=== PATIENT | male | born 1960 | race Caucasian/White ===

== ENCOUNTER 2019-08-17 09:22 | Inpatient (IN) ==
[2019-08-17] MEDS ORDERED: NS 1,000 ML IV ONE (09:47)
[2019-08-17] MEDS ORDERED: CLINDAMYCIN 900 MG/NS 900 MG/50 ML IVPB IV ONE (09:50)
[2019-08-17] MEDS ORDERED: VANCOMYCIN 1 GM/NS 1 GM/250 ML IVPB IV ONE (09:50)
[2019-08-17 09:57] LABS: BASO# 0.01 X1000 (0.0-0.2); BASO% 0.1 % (0.0-0.8); EOS# 0.04 X1000 (0.0-0.7); EOS% 0.4 % (0.0-10.0); HEMATOCRIT 43.1 % (42.0-52.0); HEMOGLOBIN 15.1 g/dL (14.0-18.0); IMM GRAN# 0.04 X1000 (0.0-0.04); IMM GRAN% 0.4 % (0.0-0.5); LYMPH# 1.46 X1000 (1.2-3.4); LYMPH% 15.1 % (20.5-51.1); MCH 36.5 PG (27-31); MCV 104.1 FL (81-99); MONO# 1.34 X1000 (0.11-0.59); MONO% 13.9 % (1.7-9.3); MPV 9.4 FL (7.4-10.4); NEUT# 6.75 X1000 (1.4-6.5); NEUT% 70.1 % (42.2-75.2); PLT 193 X1000 (130-400); RBC 4.14 XMIL (4.7-6.1); RDW 14.2 % (11.5-14.5); WBC 9.64 X1000 (4.8-10.8)
[2019-08-17] MEDS ORDERED: CLINDAMYCIN 900 MG/D5W 900 MG/50 ML IVPB IV ONE (10:00)
--- NOTE | 2019-08-17 10:10 | Diag Imaging Result Doc PS360 ---
EXAM: CHEST-2 VIEWS 08/17/2019 HISTORY: lung cancer, short of breath TECHNIQUE: Two views of the chest COMMENT: There are surgical clips in the right supraclavicular region. There is a Port-A-Cath on the left with its tip in the superior vena cava. Considering differences in technique the appearance the chest has not changed significantly since 03/13/2016. It may be COPD. IMPRESSION: COPD. Electronically signed by Gerson Mancilla 08/17/2019 10:07 AM
--- NOTE | 2019-08-17 10:10 | Diag Imaging Result Doc PS360 ---
KNEE 3 VIEWS RIGHT - 08/17/2019 INDICATION: right knee pain, wound TECHNIQUE: Three views COMPARISON: None FINDINGS: There is significant soft tissue swelling and some soft tissue gas at the superior lateral knee. At the anterior lateral distal femur, there is some subtle bony abnormality. This is highly concerning for osteomyelitis. IMPRESSION: Soft tissue inflammation with soft tissue gas at the superior lateral knee. There is bony abnormality of the femur highly concerning for osteomyelitis. Recommend a knee MRI without and with intravenous contrast if possible. Electronically signed by Chris Cruz 08/17/2019 10:07 AM
[2019-08-17 10:17] LABS: AGAP 13; ALB/GLOB RATIO 1.4; ALBUMIN 3.9 g/dL (3.5-5.0); ALKALINE PHOSPHATASE 71 U/L (32-122); BUN 13 mg/dL (8-22); CALCIUM 10.2 mg/dL (8.8-10.2); CHLORIDE 96 mmol/L (98-107); COSMO 273; CREATININE 0.7 mg/dL (0.7-1.2); ESTIMATED GFR > 60; GLUCOSE 108 mg/dL (70-104); GOT 17 U/L (10-34); GPT 21 U/L (10-44); POTASSIUM 3.7 mmol/L (3.5-5.1); SODIUM 136 mmol/L (136-145); TCO2 27 mmol/L (25-35); TOTAL BILIRUBIN 0.48 mg/dL (0.20-1.00); TOTAL PROTEIN 6.7 g/dL (6.3-8.3)
[2019-08-17 10:22] LABS: INR 1.04; PROTIME 13.8 Seconds (11.0-16.0)
--- NOTE | 2019-08-17 10:39 | EKG Report ---
Test Performed on : 08/17/2019 10:15:16 AM Test Reason : sob Blood Pressure : / mmHG Vent. Rate : 065 BPM Atrial Rate : 065 BPM P-R Int : 148 ms QRS Dur : 086 ms QT Int : 388 ms P-R-T Axes : 065 070 068 degrees QTc Int : 403 ms Normal sinus rhythm. Normal ECG When compared with ECG of 13-MAR-2016 07:39, No significant change was found Unconfirmed Result
[2019-08-17 10:41] LABS: URINE SOURCE CLEAN CATCH
[2019-08-17 10:45] LABS: BILIRUBIN URINE NEGATIVE (NEGATIVE); BLOOD URINE NEGATIVE (NEGATIVE); COLOR YELLOW; GLUCOSE URINE NEGATIVE (NEGATIVE); KETONE URINE NEGATIVE (NEGATIVE); LEUKOCYTES URINE NEGATIVE (NEGATIVE); NITRITE URINE NEGATIVE (NEGATIVE); PROTEIN URINE NEGATIVE (NEGATIVE); SP GRAVITY URINE 1.016; TURBIDITY URINE CLEAR (CLEAR); UR EPITHELIAL CELLS <10 /HPF (<10); URINE BACTERIA NEGATIVE /HPF; URINE RBC <10 /HPF (<10); URINE WBC <10 /HPF (<10); UROBILINOGEN URINE NORMAL (NORMAL)
[2019-08-17] MEDS ORDERED: MORPHINE IV ONE (12:01)
[2019-08-17] MEDS ORDERED: ZOFRAN IV ONE (12:01)
--- NOTE | 2019-08-17 12:03 | PROVIDER DOCUMENTATION ---
This chart was entered by Elvia Cruz Scribe, acting as scribe for Benito Al MD. HPI-Rash/Wound/ReCheck - General Chief Complaint: Sores/Lesions Stated Complaint: LESION/SORES Time Seen by Provider: 08/17/19 09:41 Source: patient Allergies/Adverse Reactions: Allergies Allergy/AdvReac Type Severity Reaction Status Date / Time No Known Drug Allergies Allergy Unknown Verified 08/17/19 10:12 Home Medications: Home Medication List Medication Instructions Recorded Confirmed Last Taken Type Hydrocodone/Acetaminophen [[place] 1 each PO Q4-6H PRN PRN #30 tablet 03/13/16 08/17/19 08/17/19 Rx 5-325 Tablet] Albuterol Sulfate [Ventolin Hfa] 1 dose INH PRN PRN 08/17/19 08/17/19 08/15/19 History Alprazolam 1 tab PO DAILY 08/17/19 08/17/19 08/15/19 History Ferrous Sulfate 1 tab PO DAILY 08/17/19 08/17/19 08/17/19 History Folic Acid 1 tab PO DAILY 08/17/19 08/17/19 08/17/19 History Gabapentin 1 cap PO BID 08/17/19 08/17/19 08/17/19 History Morphine Sulfate [Lottie] 1 tab PO BID 08/17/19 08/17/19 08/17/19 History Morphine Sulfate [Morphine Sulfate 1 tab PO BID 08/17/19 08/17/19 08/17/19 History ER] - History of Present Illness-Dermatology Nature of Presenting Problem: Patient is a 59 year old male who presents with skin lesions to right knee and right lower leg. Reports history of head, neck and lung cancer. States he is receiving chemo by Dr. James currently. States body aches. Location: reports: lower extremity (right knee and right lower leg.) Quality: reports: painful Severity: reports: mild Onset/Duration: reports: gradual Timing: reports: still present Context/Associated Symptoms: reports: lesion Locality of Occurance: Home Similar Symptoms Previously?: Yes Recently seen or treated by another doctor?: Yes Review of Systems - Adult - REVIEW OF SYSTEMS - ADULT Constitutional: reports: no symptoms reported Eyes: reports: no symptoms reported Ears, Nose, Mouth & Throat: reports: no symptoms reported Cardiovascular: reports: no symptoms reported Respiratory: reports: no symptoms reported Gastrointestinal: reports: no symptoms reported Genitourinary: reports: no symptoms reported Musculoskeletal: reports: see HPI, muscle aches. denies: back pain, neck pain Integumentary: reports: other (skin lesions to right knee and right lower leg.). denies: hives, itching Neurological: reports: no symptoms reported Psychiatric: reports: no symptoms reported Endocrine: reports: no symptoms reported Hematologic/Lymphatic: reports: no symptoms reported Allergic/Immunologic: reports: no symptoms reported All Other Systems: Reviewed and Negative Past History - Adult - PAST MEDICAL HISTORY-ADULT Review of Records: reports: Old Records Reviewed, Nursing Assessment Review, Medications Reviewed, Social history reviewed & non-contributory. Major Childhood Illnesses: reports: denies history Cardiovascular: reports: denies history Respiratory: reports: cancer (lung) Gastrointestinal: reports: denies history Obstetrical/Gynecological: reports: denies history Genitourinary: reports: denies history Musculoskeletal: reports: denies history Neurological: reports: denies history Endocrine/Immune: reports: denies history Other Conditions: reports: other cancer (head and neck) - PRIOR SURGERIES/PROCEDURES Surgical/Procedure History: reports: reviewed, not pertinent - IMMUNIZATION STATUS Childhood Immunizations: See Nurse Assessment Flu Vaccine: See Nurse Assessment - FAMILY HISTORY Family History: reviewed, not pertinent - SOCIAL HISTORY Smoking: cigarettes, greater than 1 pack/day Provider spent 3-5 mins advising pt. on dangers of tobacco.: Discussed manners to quit use, and f/u contacts for add'l counseling. Substance Use: denies Physical Exam-General - PHYSICAL EXAM-ADULT Initial Vital Signs Reviewed: Yes - CONSTITUTIONAL General Appearance: alert, no apparent distress, other (ill appearing.). negative: lethargic - HEAD, EARS, NOSE, MOUTH & THROAT HENMT: normocephalic/atraumatic, moist mucous membranes. negative: angioedema - RESPIRATORY Respiratory: chest non-tender, rhonchi (scattered bilaterally), other (port to right upper chest). negative: no respiratory distress, increased rate - CARDIOVASCULAR Cardiovascular: normal peripheral pulses, regular rate, rhythm. negative: tachycardia - GASTROINTESTINAL (ABDOMEN) Abdominal Exam: normal bowel sounds, non tender, soft. negative: guarding, rebound - MUSCULOSKELETAL Extremity: other (2 cm skin lesion to right medial knee with 4 cm by 4 cm surrounding erythema. 6 mm pustule distal to skin lesion on right knee. small skin ulcer to right medial lower leg.). negative: deformity, swelling - SKIN Integumentary: pallor, other (2 cm skin lesion to right medial knee with 4 cm by 4 cm surrounding erythema. 6 mm pustule distal to skin lesion on right knee. small skin ulcer to right medial lower leg.). negative: diaphoresis - NEUROLOGIC Neurologic: grossly normal. negative: aphasia, facial droop - PSYCHIATRIC Psych/Mental Status: normal mood/affect, oriented x 3. negative: anxious Progress - PLAN OF CARE/RESULTS Progress/Plan/Lab Results: Vital Signs - 8 hr 08/17/19 09:24 08/17/19 10:42 08/17/19 10:44 Temperature 98.1 F Pulse Rate 68 110 H Respiratory Rate 20 14 Blood Pressure 117/76 100/70 O2 Sat by Pulse Oximetry 95 91 L 91 L 08/17/19 10:25 Gram Stain - Final Knee - Right Laboratory Results - last 24 hr 08/17/19 08/17/19 08/17/19 09:35 09:35 09:35 WBC 9.64 RBC 4.14 L Hgb 15.1 Hct 43.1 MCV 104.1 H MCH 36.5 H MCHC 35.0 RDW Std Deviation 14.2 Plt Count 193 MPV 9.4 Immature Gran % (Auto) 0.4 Neut % (Auto) 70.1 Lymph % (Auto) 15.1 L [place] % (Auto) 13.9 H Eos % (Auto) 0.4 Baso % (Auto) 0.1 Immature Gran # (Auto) 0.04 Neut # (Auto) 6.75 H Lymph # (Auto) 1.46 [place] # (Auto) 1.34 H Eos # (Auto) 0.04 Baso # (Auto) 0.01 ESR PT INR Sodium 136 Potassium 3.7 Chloride 96 L Carbon Dioxide 27 Anion Gap 13 BUN 13 Creatinine 0.7 Estimated GFR/1.73 m2 > 60 BUN/Creatinine Ratio 19 Glucose 108 H Calculated Osmolality 273 Calcium 10.2 Total Bilirubin 0.48 AST 17 ALT 21 Alkaline Phosphatase 71 Troponin T C-Reactive Prot, Quant Bry-P-Akxkuhavnch Pept Total Protein 6.7 Albumin 3.9 Globulin 2.8 Albumin/Globulin Ratio 1.4 Plasma Lactate 1.0 Urine Source Urine Color Urine Turbidity Urine pH Ur Specific [place] Urine Protein Ur Glucose (Stick) Ur Ketones (Stick) Urine Blood Urine Nitrite Urine Bilirubin Urobilinogen Dipstick Urine Leukocytes Urine WBC (Auto) Urine RBC (Auto) U Epithel Cells (Auto) Urine Bacteria (Auto) 08/17/19 08/17/19 08/17/19 09:35 09:35 09:35 WBC RBC Hgb Hct MCV MCH MCHC RDW Std Deviation Plt Count MPV Immature Gran % (Auto) Neut % (Auto) Lymph % (Auto) [place] % (Auto) Eos % (Auto) Baso % (Auto) Immature Gran # (Auto) Neut # (Auto) Lymph # (Auto) [place] # (Auto) Eos # (Auto) Baso # (Auto) ESR 15 PT INR Sodium Potassium Chloride Carbon Dioxide Anion Gap BUN Creatinine Estimated GFR/1.73 m2 BUN/Creatinine Ratio Glucose Calculated Osmolality Calcium Total Bilirubin AST ALT Alkaline Phosphatase Troponin T C-Reactive Prot, Quant 27.44 H [id number]-Fdlcxcgazpg Pept 69 Total Protein Albumin Globulin Albumin/Globulin Ratio Plasma Lactate Urine Source Urine Color Urine Turbidity Urine pH Ur Specific [place] Urine Protein Ur Glucose (Stick) Ur Ketones (Stick) Urine Blood Urine Nitrite Urine Bilirubin Urobilinogen Dipstick Urine Leukocytes Urine WBC (Auto) Urine RBC (Auto) U Epithel Cells (Auto) Urine Bacteria (Auto) 08/17/19 08/17/19 08/17/19 09:35 09:35 10:28 WBC RBC Hgb Hct MCV MCH MCHC RDW Std Deviation Plt Count MPV Immature Gran % (Auto) Neut % (Auto) Lymph % (Auto) [place] % (Auto) Eos % (Auto) Baso % (Auto) Immature Gran # (Auto) Neut # (Auto) Lymph # (Auto) [place] # (Auto) Eos # (Auto) Baso # (Auto) ESR PT 13.8 INR 1.04 Sodium Potassium Chloride Carbon Dioxide Anion Gap BUN Creatinine Estimated GFR/1.73 m2 BUN/Creatinine Ratio Glucose Calculated Osmolality Calcium Total Bilirubin AST ALT Alkaline Phosphatase Troponin T < 0.010 C-Reactive Prot, Quant Cul-L-Adypjsflzgq Pept Total Protein Albumin Globulin Albumin/Globulin Ratio Plasma Lactate Urine Source CLEAN CATCH Urine Color YELLOW Urine Turbidity CLEAR Urine pH 6.0 Ur Specific [place] 1.016 Urine Protein NEGATIVE Ur Glucose (Stick) NEGATIVE Ur Ketones (Stick) NEGATIVE Urine Blood NEGATIVE Urine Nitrite NEGATIVE Urine Bilirubin NEGATIVE Urobilinogen Dipstick NORMAL Urine Leukocytes NEGATIVE Urine WBC (Auto) <10 Urine RBC (Auto) <10 U Epithel Cells (Auto) <10 Urine Bacteria (Auto) NEGATIVE Orders Category Date Time Status Nursing- Obtain EKG once Care 08/17/19 09:47 Active CHEST-2 VIEWS [RAD] Stat Exams 08/17/19 09:45 Completed KNEE 3 VIEWS RIGHT [RAD] Stat Exams 08/17/19 09:45 Completed BLOOD CULTURE [BLDCUL] Stat Lab 08/17/19 10:40 Results C REACTIVE PROT QUANT [CHEM] Stat Lab 08/17/19 09:35 Completed CBC WITH ELECTRONIC DIFF [HEME] Stat Lab 08/17/19 09:35 Completed COMPREHENSIVE METABOLIC PANEL [CHEM] Stat Lab 08/17/19 09:35 Completed LACTATE, PLASMA [CHEM] Stat Lab 08/17/19 09:35 Completed PROTIME WITH INR [COAG] Stat Lab 08/17/19 09:35 Completed SED RATE [HEME] Stat Lab 08/17/19 09:35 Completed TROPONIN T Stat Lab 08/17/19 09:35 Completed URINALYSIS W/POSS RFLX CULT [URINALYSIS] Stat Lab 08/17/19 10:28 Completed WOUND CULTURE INC GRAM STAIN [RM] Routine Lab 08/17/19 10:25 Results pro-bnp [PRO B-NATRIURETIC PEPTIDE] Stat Lab 08/17/19 09:35 Completed 0.9% Sodium Chloride Inj [Ns] 1,000 ml Med 08/17/19 09:47 Discontinued IV 999 mls/hr Clindamycin 900 mg/D5w Med 08/17/19 10:00 Discontinued 900 mg in 50 ml IV NOW Clindamycin 900 mg/Ns Med 08/17/19 09:50 Discontinued 900 mg in 50 ml IV NOW Vancomycin 1 gm/Ns Med 08/17/19 09:50 Discontinued 1 gm in 250 ml IV NOW Generalized Adult Illness >60 Stat Oth 08/17/19 09:32 Ordered EKG [EKG] Stat Ther 08/17/19 09:47 Draft Result Diagrams: 08/17/19 09:35 08/17/19 09:35 - REASSESSMENT Reassessment #1 Time Reassessed: 12:00 Status: improving (Given IV Vanco/Clindamycin, Morphine/Zofran) - EKG 1 Time of EKG reading by physician:: 10:15 EKG Read and Signed by:: Benito Al EKG Interpretation (*Must complete 3 of following elements*): Normal Rate: 65 Rhythm: normal sinus rhythm [place]: normal QRS: normal [place] Interval: normal ST Wave: normal Comments: normal ECG - XRAY 1 XRAY Study: Chest Impression: See EMR Report ( EXAM: CHEST-2 VIEWS 08/17/2019 HISTORY: lung cancer, short of breath TECHNIQUE: Two views of the chest COMMENT: There are surgical clips in the right supraclavicular region. There is a Port-A-Cath on the left with its tip in the superior vena cava. Considering differences in technique the appearance the chest has not changed significantly since 03/13/2016. It may be COPD. IMPRESSION: COPD. Electronically signed by Gerson Mancilla 08/17/2019 10:07 AM 08/17/19 1007 Interpreting Physician: Gerson Mancilla MD Dictated Date/Time: 08/17/19 1006 cc: Benito Al MD; Laly James MD) 2 XRAY: Right XRAY Study: Knee Impression: See EMR Report (KNEE 3 VIEWS RIGHT - 08/17/2019 INDICATION: right knee pain, wound TECHNIQUE: Three views COMPARISON: None FINDINGS: There is significant soft tissue swelling and some soft tissue gas at the superior lateral knee. At the anterior lateral distal femur, there is some subtle bony abnormality. This is highly concerning for osteomyelitis. IMPRESSION: Soft tissue inflammation with soft tissue gas at the superior lateral knee. There is bony abnormality of the femur highly concerning for osteomyelitis. Recommend a knee MRI without and with intravenous contrast if possible. Electronically signed by Chris Cruz 08/17/2019 10:07 AM 08/17/19 1007 Interpreting Physician: Chris Cruz MD Dictated Date/Time: 08/17/19 1005 cc: Benito Al MD; Laly James MD) - CONSULTS/PCP/HOSPITALIST Notification #1 *Consult/PCP/Hospitalist*: Dr. Xie Time Discussed: 11:51 Reason/Comments: Dr. Al consulted with Dr. Xie about patient. Consult Disposition: other (Dr. Xie states he does not recollect that patient.) #2 Consult: GERARD Ness for Hospitalist Time Discussed: 11:59 Reason/Comments: Dr. Al consulted with Thi about patient Consult Disposition: Will see in ED, Admit #3 Consult: Erika paged at 1151 Departure - Departure Date of Disposition Decision: 08/17/19 Time of Disposition Decision: 12:00 DIAGNOSIS: Osteomyelitis of right knee region, Maintenance chemotherapy Disposition: ADMITTED INPATIENT 09 Certified Medical Emergency: Emergent Condition: Stable Referrals and Follow-Ups: Laly James MD [Primary Care Provider] - - Critical Care Note This patient required my direct & personal management of CC.: No Attestation - Physician/ BOOKER Attestation Patient care was provided by Advanced Practice Provider:: No The physician spent face to face time with patient:: Yes Advanced Practice Provider documentation review:: Supervising physician onsite and consulted in the evaluation and care of this patient. The physician did have a face to face encounter with the patient. This chart was documented by the indicated scribe, (Elvia Cruz Scribe) and accurately reflects the services I performed and decisions made by me, Benito Al MD, as attested by the provider's signature.
[2019-08-17] MEDS ORDERED: CLINDAMYCIN 600 MG/NS 600 MG/50 ML IVPB IV SCH ×2 (13:00→18:00)
[2019-08-17] MEDS ORDERED: VANCOMYCIN IV PER PHARMACY MISC SCH (13:00)
--- NOTE | 2019-08-17 14:10 | HISTORY AND PHYSICAL ---
CHIEF COMPLAINT: Right knee pain, swelling, and redness. HISTORY OF PRESENT ILLNESS: This is a 59-year-old gentleman with a history of head and neck cancer, who presents to the emergency room from Dr. Laly James's office, complaining of right knee swelling, redness, pain, as well as some lesions to his right saunders. He states that this started about a week ago with 2 pimples that were noted to his anterior knee approximately a week ago. Over the last few days, 1 of the pimples ruptured, draining some white drainage. Then, he developed some swelling, redness, warmth, and increased pain to this area. He denied any injury. He does have an area to his lower right saunders that was a skin tear from bumping his knee on a piece of furniture. He denied any fevers or chills. PAST MEDICAL HISTORY: 1. Head and neck cancer. 2. Chronic pain. 3. Left lung cancer. PAST SURGICAL HISTORY: 1. Right neck dissection. 2. Right lung biopsy. 3. Left internal jugular Port-A-Cath placement. ALLERGIES: No known drug allergies. SOCIAL HISTORY: He is . He continues to smoke, with a 40 pack per year history. He denies alcohol. He does use marijuana daily. REVIEW OF SYSTEMS: Discussed with the patient, with pertinent positives stated in the HPI. He denied any syncope or dizziness, any chest pain or palpitations, any nausea, vomiting, diarrhea, constipation, black or bloody vomitus or stools, hematuria, dysuria, frequency, urgency. PHYSICAL EXAMINATION: GENERAL: This is a 59-year-old gentleman who is sitting up on the stretcher in the emergency room in no distress. VITAL SIGNS: Blood pressure is 117/76, with a heart rate of 68, respirations are 20, temperature is 98.1 degrees, with room air saturations 93% to 95%. HEENT: Head is normocephalic, atraumatic. Mucous membranes are moist. NECK: Supple with trachea midline. CARDIOVASCULAR: Regular rate and rhythm. S1 and S2 appreciated. Calves are nontender bilaterally with peripheral pulses palpable x4 extremities. PULMONARY: Breath sounds are clear with no increased work of breathing noted. Chest rises and falls symmetric with respiration. GASTROINTESTINAL: Abdomen is soft, nontender, nondistended with bowel sounds in all 4 quadrants. NEUROLOGIC: He is alert and oriented x3. SKIN: Warm and dry. He is pale. His right knee is edematous with surrounding erythema, with a lesion noted to the right medial knee, as well as a pustule to the distal knee, with a small skin ulcer to the right medial lower leg. IMAGING AND LABORATORY DATA: WBC is 9.6, with hemoglobin 15.1, hematocrit 43.1, and platelets 193,000. Sodium 136, potassium 3.7, BUN 13, creatinine 0.7, with a glucose of 108. CRP is 27.44. Urinalysis is essentially negative. Blood cultures and wound culture are pending. Right knee x- ray: Soft tissue inflammation with soft tissue gas at the superolateral knee. There is bony abnormality of the right femur, highly concerning for osteomyelitis. Recommend MRI without and with contrast. ASSESSMENT: 1. Osteomyelitis, right knee. 2. Head and neck and left lung cancer. 3. Chronic pain. 4. Chronic tobacco use and abuse. PLAN: The patient will be admitted to the medical floor. Will consult Dr. Francis in Orthopedics, as well as Dr. Julien Lema with Infectious Disease. Will continue clindamycin and vancomycin, dosed per pharmacy, and then further antibiotics will be culture driven. Identify his home medications, and continue as appropriate. Check a CBC and a CMP in the morning. Further treatments pending hospital course. Plan was discussed with Dr Chowdhury Dictated by GERARD Denson for Heriberto Albright MD cc: GERARD Denson MD [facility]
[2019-08-17] MEDS ORDERED: NORCO-5 PO PRN (15:08)
--- NOTE | 2019-08-17 15:24 | Diag Imaging Result Doc PS360 ---
EXAM: MRI LOW EXT JT W/WO CON-RIGHT 08/17/2019 HISTORY: ?osteomyelitis TECHNIQUE: Axial proton density fat sat, T2 axial, proton density coronal, coronal T1, sagittal proton density fat sat, T1, STIR, axial post contrast T1 fat sat and coronal T1 fat sat. COMMENT: There is subcutaneous edema over the anterior knee, primarily medially. There is a focus of increased T2 and decreased T1-weighted signal intensity in the lateral femoral epicondyle region posteriorly. This enhances weakly with gadolinium. The appearance on the MRI study as well as on the plain films of 08/17/2019 would be consistent with a bone infarct, although the possibility of a Clay's abscess cannot be entirely excluded. The cruciate ligaments are intact as are the menisci. There are some degenerative changes in the patellofemoral joint. There is otherwise no evidence of bone marrow edema to suggest osteomyelitis. IMPRESSION: Superficial soft tissue edema anteromedially. The possibility of cellulitis cannot be excluded. The lesion in the lateral epicondyle of the femur is considered to be unlikely related to osteomyelitis. This appears chronic with peripheral sclerosis. Electronically signed by Gerson Mancilla 08/17/2019 3:22 PM
--- NOTE | 2019-08-17 18:05 | HISTORY AND PHYSICAL ---
HISTORY AND PHYSICAL ADDENDUM: The patient seen and examined by me face to face. All the laboratory, vital signs, and images were reviewed. The patient presented with a right knee infection which is probably only cellulitis and superficial. I do not think this is going to the bone, though. It is not painful to mobilization. I do not think there is a septic arthritis. We did an MRI that showed superficial soft tissue edema anteromedially. The possibility of cellulitis cannot be excluded. The lesion in the lateral epicondyle of the femur is considered to be unlikely related to osteomyelitis. This appears chronic with peripheral sclerosis. As per the patient he went today to visit his oncologist, Dr. Laly James, and when they saw the lesion, they send this patient here to the hospital. He has been evaluated by Orthopedic Surgery. I do not think they are going to do any kind of procedure. Hopefully, this patient can receive treatment for this overnight and then he can be evaluated tomorrow morning by the Infectious Disease doctor, and hopefully if everything is okay, we can send this patient home. For now, I will continue with same management. cc: Heriberto Albright MD
--- NOTE | 2019-08-17 19:03 | ORTHOPAEDICS CONSULTATION ---
DATE: 08/17/2019 CHIEF COMPLAINT: Right knee pain with swelling, redness. HISTORY OF PRESENT ILLNESS: Mr. Golden is a 59-year-old male with a past medical history of head and neck cancer who presents to the emergency room from Dr. Bojorquez's office. He was supposed to get chemotherapy today, but was complaining of the right knee. Apparently, over the last week, he has had increased swelling, redness, and pain. He did notice that he started out with 2 pimples, 1 of them ruptured and drained. He states things began worse over the last couple of days. He does not have any pain with movement of the knee, but it is tender to touch. The decided to send him over for further evaluation. PAST MEDICAL HISTORY: 1. Head and neck cancer. 2. Chronic pain. 3. Left lung cancer. PAST SURGICAL HISTORY: 1. Right neck dissection. 2. Right lung biopsy. 3. Left Port-A-Cath placement. ALLERGIES: No known drug allergies. SOCIAL HISTORY: He is and lives with his . He is a daily smoker. He denies alcohol. He does use marijuana daily. REVIEW OF SYSTEMS: A 10-point review of systems was completed and negative unless as mentioned above in the HPI. PHYSICAL EXAMINATION: Current Vital Signs: Temperature is 97.5 degrees, pulse is 65, respirations 16, blood pressure is 113/75, and he is 94% on 2 L of oxygen. General: This is a 59- year-old male in no acute distress. Neurological: He is alert and oriented x3 with no focal deficits. HEENT: Head is atraumatic, normocephalic. Pupils equal, round, reactive to light. Cardiovascular: Regular rate and rhythm. Pulmonary: Breathing is even and nonlabored with equal chest expansion. Abdomen: Appears nondistended. Extremities: Right lower extremity exam, he does have 2 small superficial wounds with erythema. There is no obvious drainage presently. There is no notable effusion to the knee. He has good sensation. No numbness or tingling. He does have another abrasion that is shallow with no erythema or drainage to the saunders. He also has that on the left side. IMAGING STUDIES: A lower extremity MRI was done that did show an area on the lateral femoral condyle that could be a possible bone infarct. The radiologist also mentioned that a Clay's abscess could not be excluded. We do not believe this is suggestive of osteomyelitis. The left knee that was reviewed and interpreted by Dr. Francis showed a bony abnormality of the femur that could be concerning for osteomyelitis, which is why they went and did the MRI. ASSESSMENT: Right prepatellar bursitis with infection. PLAN: I do think we can treat this empirically with IV antibiotics. I do not think there is anything we really need to drain or culture. I think starting him on IV antibiotics will clear this up the quickest. We do suggest that his oncologist review the MRI for that area on the femoral epicondyle. I do not believe he needs anything surgical, just local wound care and IV antibiotics. If we can be of any further assistance, please let us know. Dictated by GERARD Dunham for Daniele Francis MD cc: GERARD Dunham MD
[2019-08-17] MEDS ORDERED: VANCOMYCIN 1 GM/NS 1 GM/250 ML IVPB IV SCH (20:00)
[2019-08-17] MEDS: CLINDAMYCIN 600 MG/D5W 600 MG/50 ML IVPB IV SCH (20:55)
[2019-08-17] MEDS: NEURONTIN PO SCH (21:53)
[2019-08-17] MEDS: MS CONTIN PO SCH (21:53)
[2019-08-18] MEDS: CLINDAMYCIN 600 MG/D5W 600 MG/50 ML IVPB IV SCH (04:34)
[2019-08-18 07:04] LABS: BASO# 0.01 X1000 (0.0-0.2); BASO% 0.1 % (0.0-0.8); EOS# 0.09 X1000 (0.0-0.7); EOS% 1.2 % (0.0-10.0); HEMATOCRIT 45.1 % (42.0-52.0); HEMOGLOBIN 14.9 g/dL (14.0-18.0); IMM GRAN# 0.03 X1000 (0.0-0.04); IMM GRAN% 0.4 % (0.0-0.5); LYMPH# 1.67 X1000 (1.2-3.4); LYMPH% 21.5 % (20.5-51.1); MCH 35.1 PG (27-31); MCV 106.1 FL (81-99); MONO# 1.11 X1000 (0.11-0.59); MONO% 14.3 % (1.7-9.3); MPV 9.6 FL (7.4-10.4); NEUT# 4.87 X1000 (1.4-6.5); NEUT% 62.5 % (42.2-75.2); PLT 175 X1000 (130-400); RBC 4.25 XMIL (4.7-6.1); RDW 14.4 % (11.5-14.5); WBC 7.78 X1000 (4.8-10.8)
[2019-08-18 07:29] LABS: AGAP 10; ALB/GLOB RATIO 1.3; ALBUMIN 3.3 g/dL (3.5-5.0); ALKALINE PHOSPHATASE 65 U/L (32-122); BUN 8 mg/dL (8-22); CALCIUM 9.3 mg/dL (8.8-10.2); CHLORIDE 103 mmol/L (98-107); COSMO 271; CREATININE 0.5 mg/dL (0.7-1.2); ESTIMATED GFR > 60; GLUCOSE 79 mg/dL (70-104); GOT 14 U/L (10-34); GPT 15 U/L (10-44); POTASSIUM 4.1 mmol/L (3.5-5.1); SODIUM 137 mmol/L (136-145); TCO2 24 mmol/L (25-35); TOTAL PROTEIN 5.8 g/dL (6.3-8.3)
[2019-08-18] MEDS: MS CONTIN PO SCH ×4 (08:10→23:07)
[2019-08-18] MEDS: NEURONTIN PO SCH ×2 (08:12→23:06)
--- NOTE | 2019-08-18 08:38 | ORTHOPAEDICS PROGRESS NOTE ---
DATE: 08/18/2019 SUBJECTIVE: Mr. Golden is lying in bed this morning, overall feeling okay. OBJECTIVE: Right Lower Extremity: He still has some erythema around the knee. It does seem very superficial. He has no knee effusion. He can move his knee really well. There is not really any pain with range of motion. I do not feel any areas of definite fluctuance. ASSESSMENT: Right prepatellar infected bursitis. PLAN: I discussed with Mr. Golden about staying on antibiotics. I am okay with him being discharged from an orthopedic standpoint. I think we can manage this as an outpatient if he is on antibiotics. I do not feel that it is a septic joint. Concerning his MRI, he does have a bone lesion in the lateral distal femur. I would recommend that his oncologist look at that. If there is any concern for metastases, then he probably would need to see an orthopedic oncologist. cc: Daniele Francis MD
[2019-08-18] MEDS ORDERED: MORPHINE IV ONE (09:17)
[2019-08-18] MEDS: XANAX PO SCH ×2 (10:23→10:28)
[2019-08-18] MEDS: CUBICIN 400 MG in NS 100 ML IV SCH (11:24)
--- NOTE | 2019-08-18 12:30 | INFECTIOUS DISEASE CONSULT REP ---
DATE: 08/18/2019 CONCLUSION: The patient has an infection of his left knee. It does appear to be a prepatellar bursitis. However, on CT scan, there is a possibility that the patient has septic arthritis and/or osteomyelitis involving the knee. Patient's CBC shows a white count of 7780, hemoglobin 14.9, platelet count 175,000 creatinine 0.5, GFR is greater than 60. Urinalysis was negative for bacteria and white cells. Right knee culture is growing gram-positive coccus. RECOMMENDATIONS: The patient is growing a gram-positive coccus from the culture from the patient's leg and pending on its identification, I will place the patient on daptomycin. The microbiologist did tell me that it is a Staphylococcus, but she is not certain at this time which species it is. If it turns out to be a methicillin-resistant Staph aureus, then the patient will require 8 weeks of treatment with daptomycin, and if it turns out to be an oxacillin-sensitive Staph aureus, then we will change the patient possibly to Ancef but he may not have coverage for that and he may have to stick with daptomycin and come to the outpatient clinic to get his medication, which he may have to do if it is also methicillin-resistant Staph aureus. DISCUSSION: The patient tells me about a week ago, he developed erythema, swelling and pain of his right knee. Also pus was found. A culture taken from the pus is growing gram-positive coccus. MRI of the knee shows the possibility of septic arthritis and osteomyelitis. The patient's laboratory studies show a CBC with a white count of 7780, hemoglobin 14.9, platelet count 175,000. Creatinine is 0.5, GFR is greater than 60. Urinalysis showed no white cells or bacteria. Culture from the right knee purulent drainage is growing gram-positive coccus. PAST MEDICAL HISTORY/REVIEW OF SYSTEMS: Eyes and ears: His vision is okay but he has decreased hearing. Neck: No stiffness. Respiratory: No cough or shortness of breath. Cardiac: No chest pain or palpitations. Gastrointestinal: No nausea, vomiting, or diarrhea. Genitourinary: No dysuria or flank pain. Neurologic: No seizures, no recent loss of motor or sensory function. Integument: No rash PREVIOUS HOSPITALIZATIONS AND OPERATIONS: The patient tells me that he has had multiple fractures including his hands, arms and legs and he required surgery and metal was placed in these areas. He also told me that the metal subsequently has been removed. MEDICATIONS TAKEN AT HOME: Include Ventolin inhaler, alprazolam, gabapentin, hydrocodone, and morphine. MEDICAL DISEASES: The patient has lung cancer and apparently it has metastasized and he is taking chemotherapy for it. Chronic obstructive pulmonary disease. INFECTIOUS DISEASE HISTORY: Negative for pneumonia and UTI. FAMILY HISTORY: Positive for hypertension. SOCIAL HISTORY[place] . He is disabled. He has a dog as a pet. He smokes cigarettes, drinks alcoholic beverages, uses marijuana. PHYSICAL EXAMINATION: Vital Signs: Temperature is 97.6 degrees, pulse 64, respirations 18, blood pressure 131/78. The patient is 5 feet 9 inches tall, weighs 143 pounds. General: This is an ill and somewhat malnourished-appearing, middle-aged male. He is in no acute distress. Head/eyes/ears/nose/throat: He has decreased hearing. He can see near objects. He has poor oral hygiene. Neck: No meningismus. Lungs: Clear to auscultation. Cardiovascular: Regular heart rate. Thorax: The patient has a Port-A-Cath in place on the left side. The site is not erythematous or swollen. Cardiovascular: Regular heart rate. Lungs: Clear to auscultation. Abdomen: Soft and nontender. Neurologic: The patient is awake. He can ambulate. He does not have a tremor. His sensation was intact to touch. His memory as regarding his medical history was decreased. Thank you for the consult. cc: Julien Lema MD
--- NOTE | 2019-08-18 13:45 | PROGRESS NOTE ---
DATE: 08/18/2019 SUBJECTIVE: This patient is resting comfortably in bed. He does have generalized pain, I put him back on his home medications. He has been evaluated by Dr. Lema from Infectious Disease Department and he has been placed on daptomycin because his right knee culture showed gram- positive cocci. We will wait 1 more day to have the final sensitivity and the final bacteria so we can send this patient home. OBJECTIVE: Vital Signs: Temperature 98.2 degrees, pulse 72, respiratory rate 12, blood pressure 116/71, oxygen saturation 95% on room air. HEENT: Head normocephalic, no trauma. PERRLA. Neck: Supple. No JVD. No masses. Central trachea. He does have a Port-A-Cath. Abdomen: Soft, nontender, nondistended. No hepatosplenomegaly. Extremities: No edema, no clubbing, no cyanosis. He does have right knee erythema, is warm to palpation, and it has signs of infection, is not actively draining pus but we had some culture from that knee that showed gram-positive cocci, it looks like a right prepatellar infected bursitis. I do not think he has septic arthritis since he is able to move the knee without any pain. Neurological: The patient is alert, he is oriented x3. No focal deficits. LABORATORY DATA: WBC 7.7, hemoglobin 14.9, hematocrit 45.1, platelets 175,000. Sodium 137, potassium 4.1, chloride 103, bicarbonate 24, BUN 8, creatinine 0.5, glucose 79, calcium 9.3, albumin 3.3. ASSESSMENT AND PLAN: 1. Right prepatellar infected bursitis. There is also a possibility of osteomyelitis. Infectious Disease Department has evaluated this patient. It looks like he is going to receive long-term treatment but we will need to wait for the final bacteria. Orthopedic Surgery Department on board as well. 2. Head and neck and left lung cancer, followed by Dr. Laly James. We will continue with the same management and follow up as an outpatient. 3. Chronic pain. Continue home medications. 4. Chronic tobacco use and abuse. This patient has been highly advised against tobacco use. I will continue with daily cessation education. cc: Heriberto Albright MD
[2019-08-18] MEDS: NORCO-10 PO PRN (18:53)
[2019-08-19] MEDS: NORCO-10 PO PRN (04:04)
[2019-08-19] MEDS: XANAX PO SCH (10:13)
[2019-08-19] MEDS: NEURONTIN PO SCH (10:13)
[2019-08-19] MEDS: CUBICIN 400 MG in NS 100 ML IV SCH (10:13)
[2019-08-19] MEDS: MS CONTIN PO SCH ×2 (10:13)
[2019-08-19 11:41] VITALS: BP 113/90
--- NOTE | 2019-08-19 18:53 | INFECTIOUS DISEASE PROGRESS NO ---
DATE: 08/19/2019 The patient has an oxacillin sensitive Staphylococcus aureus septic prepatellar bursitis. Also, there is possible septic arthritis of the knee and osteomyelitis of the knee. The patient has a Port-A-Cath in place. He is going to be going home on Ancef 2 g IV every 8 hours for 6 weeks. I have requested that the patient come to my office at 3 weeks and then after that, he will come in another 3 weeks after that. Some of the side effects of Ancef including rash and diarrhea have been explained to the patient who agrees with treatment. The patient's antibiotic is going to be supplied by [facility] [facility]. cc: Julien Lema MD
--- NOTE | 2019-08-20 12:39 | DISCHARGE SUMMARY ---
ADMISSION DATE: 08/17/2019 DISCHARGE DATE: 08/19/2019 DISCHARGE DIAGNOSES: 1. Right prepatellar infected bursitis with possible osteomyelitis of the femur. 2. Head and neck and left lung cancer followed by Dr. Laly James. 3. Chronic pain. 4. Chronic tobacco use and abuse. PROCEDURES PERFORMED: 1. Chest x-ray dated 08/17/2019 impression: COPD. 2. Knee x-ray dated 08/17/2019 impression: Soft tissue inflammation with soft tissue gas at the superior lateral knee. There is bony abnormality of the femur highly concerning for osteomyelitis. Recommended a knee MRI without and with intravenous contrast if possible. 3. Lower extremity MRI dated 08/17/2019 impression: A small area of bone marrow signal hyperintensity and enhancement at the medial distal diaphysis about 1 cm completely separate from the more circumscribed entity in the lateral distal femur. This may be a small area of osteomyelitis, there is definitely extensive cellulitis probably a small subcentimeter cutaneous abscess just medial to the patella. There is also hyperintense signal of a distal quadriceps tendon which may represent tendinitis from the infectious process. Also, there is a subtle synovium of the joint surfaces, mainly at the lateral portion of the joint. This may represent septic arthritis, no joint effusion, but the reading from 08/17/2019 showed superficial soft tissue edema anteromedially. The possibility of cellulitis cannot be excluded. The lesion in the lateral epicondyle of the femur is considered to be likely related to osteomyelitis. This appears chronic with peripheral sclerosis. CONSULTATIONS: 1. Orthopedic Surgery Department, Dr. Francis. 2. Infectious Disease Department, Dr. Lema. MICROBIOLOGY: Right knee culture with methicillin-sensitive Staphylococcus aureus. HOSPITAL COURSE: A 59-year-old male with a past medical history of head and neck cancer, lung cancer, presented to the emergency department from Dr. Laly James's office complaining of right knee swelling, redness and pain, as well as some lesion in the saunders. Apparently a week ago this started with 2 pimples that were noted to his anterior knee; over the last few days, 1 of the pimples ruptured draining some white drainage. Then he developed swelling, redness, warmth, and increased pain to this area. He denies any injury. He does have an area to his lower right saunders that was a skin tear from bumping his knee on a piece of furniture. He denied any fever or chills. He was hospitalized and we did some images, including an MRI that showed the possibility of femur osteomyelitis and also some inflammation at the level of the knee, which was probably compatible with cellulitis. Orthopedic Surgery Department as well as Infectious Disease Department evaluated this patient. We have a positive culture that showed MSSA and, given this presentation, Infectious Disease Department has recommended to treat this patient with IV antibiotics for 6 weeks, and actually after the evaluation he has recommended Ancef 2 g every 8 hours. This patient is feeling much better today. Blood culture has been negative. He will be discharged home with antibiotics; [facility] will take care of the treatment, and Dr. Lema wants to see this patient in 3 weeks and 6 weeks as well. PHYSICAL EXAMINATION: Vital Signs: Temperature 97.7 degrees, pulse 90, respiratory rate 22, blood pressure 113/90, oxygen saturation 98 on room air. HEENT: Head normocephalic, no trauma. PERRLA. Neck: Neck is supple. No JVD. No masses. Central trachea. Chest: Clear to auscultation. He does have a Port-A-Cath. Abdomen: Soft, nontender, nondistended. No hepatosplenomegaly. Extremities: No edema, no clubbing, no cyanosis. He does have a right knee erythema that is warm to palpation and has some signs of infection. He is not actively draining pus at this moment, but he has some culture of that knee that shows MSSA. He is able to move that knee without any problem or pain. Neurological examination: The patient is alert. He is oriented x3. No focal neurological deficits. LABORATORY: Laboratory yesterday: WBC 7.7, hemoglobin 14.9, hematocrit 45.1, platelets 175. Sodium 137, potassium 4.1, chloride 103, bicarbonate 24. BUN 8, creatinine 0.5, glucose 79 calcium 9.3. AST 14, ALT 15, alkaline phosphatase 65 and albumin 3.3. DISCHARGE MEDICATIONS: Basically he will continue with his home medications including albuterol sulfate 1 dose inhaler as needed, alprazolam 1 tablet p.o. daily 1 mg, ferrous sulfate 325 mg p.o. daily, folic acid 1 mg p.o. daily, gabapentin 300 mg p.o. b.i.d., [place] 10 every 8 hours as needed for pain, morphine sulfate 30 mg capsule ER twice a day and morphine p.o. tablet ER 15 mg twice a day as well. TIME DISCHARGING THIS PATIENT: 25 minutes. cc: Heriberto Albright MD
== END 2019-08-19 15:16 | disposition home health service (06) | DRG 540 ==
LOC: ED 09:22 → 4N 13:09
PROVIDERS: ATTEND Internal Medicine